=== PATIENT | female | born 1940 | race Caucasian/White ===

== ENCOUNTER → 2016-09-22 | Outpatient (CLI) | payer MEDICARE, OTHER ==
--- NOTE | 2016-09-22 14:50 | RAD ---
Right femur radiographs History: Right thigh pain for one month. Comparison: None. Findings: AP and lateral views of the right femur. No acute fracture or acute malalignment is identified. Impression: No acute osseous traumatic injury identified.
--- NOTE | 2016-09-22 15:55 | RAD ---
Lumbar spine, 3 views, 09/22/2016: History: Back pain, UTI The bony structures are demineralized. The lumbar vertebral heights are well-maintained. No fracture is identified. There is moderate disc space narrowing with a vacuum disc phenomena, endplate sclerosis and marginal spurring at L5-S1. There are moderate degenerative changes involving the facet joints in the lower lumbar spine. There is a minimal associated spondylolisthesis at L4-5 as well as mild narrowing of that disc space. IMPRESSION: 1. Demineralization. 2. Moderate degenerative change in the lower lumbar spine. 3. Minimal spondylolisthesis at L4-5 due to facet joint arthropathy.
== END | disposition home or self-care (01) ==
LOC: DXRADRC 14:11
PROVIDERS: ATTEND Physician Assistant
DX: M47.896 Other spondylosis, lumbar region (principal); M43.16 Spondylolisthesis, lumbar region; M81.0 Age-related osteoporosis without current pathological fracture; M54.5 Low back pain
CPT/HCPCS: 72100; 73552

== ENCOUNTER → 2016-10-01 | Outpatient (CLI) | payer MEDICARE, OTHER ==
--- NOTE | 2016-10-01 14:59 | RAD ---
Abdomen, 2 views, 10/01/2016: History: Lower abdominal pain There is moderate amount of gas and stool in the colon. No free air is identified in the abdomen. There is no evidence of organomegaly. Lower pelvic calcifications are compatible with phleboliths. There are moderate scattered degenerative changes in the spine. IMPRESSION: No acute abdominal abnormality is detected.
== END | disposition home or self-care (01) ==
LOC: DXRADRC 11:09
PROVIDERS: ATTEND Physician Assistant
DX: R10.30 Lower abdominal pain, unspecified (principal)
CPT/HCPCS: 74020

== ENCOUNTER → 2017-05-11 | Outpatient (CLI) | payer MEDICARE, OTHER ==
--- NOTE | 2017-05-11 14:37 | RAD ---
DATE: 05/11/2017. EXAM: DIGITAL DIAGNOSTIC RT. HISTORY: Density on mammographic screening. Additional views are requested. COMPARISON: 11/15/2013, 11/27/2013, 11/08/2014, 04/28/2016, 04/29/2017. This study was interpreted with the benefit of Computerized Aided Detection (CAD). FINDINGS: The breast parenchyma is dense, which could reduce sensitivity of mammography. Breast parenchyma level density D.. The density of concern laterally on the right CC view resolves to its former appearance on spot compression. There is no suspicious mammographic finding. Scattered calcifications are benign. BI-RADS CATEGORY: 2 BENIGN FINDING(S). RECOMMENDED FOLLOW-UP: 12M 12 MONTH FOLLOW-UP. PQRS compliance statement: Patient information was entered into a reminder system with a target due date 04/29/2018 or the next mammogram. Mammography is a sensitive method for finding small breast cancers, but it does not detect them all and is not a substitute for careful clinical examination. A negative mammogram does not negate a clinically suspicious finding and should not result in delay in biopsying a clinically suspicious abnormality. "Our facility is accredited by the [employer] Mammography Program."
== END | disposition home or self-care (01) ==
LOC: MAMMO 13:47
PROVIDERS: ATTEND Physician Assistant
DX: R92.8 Other abnormal and inconclusive findings on diagnostic imaging of breast (principal)
CPT/HCPCS: G0206; 77065